=== PATIENT | male | born 1990 ===

== ENCOUNTER 2017-08-20 02:14 | Emergency (ER) | payer SELFPAY ==
[~2017-08-20] VITALS: Ht 167.6 cm; Wt 72.6 kg
[2017-08-20 02:15] VITALS: BP_SYST 130
== END 2017-08-20 02:25 | disposition left against medical advice (07) ==
LOC: SED 02:14
DX: R11.10 Vomiting, unspecified (principal); Z53.21 Procedure and treatment not carried out due to patient leaving prior to being seen by health care provider